=== PATIENT | female | born 1995 | race Caucasian/White ===

== ENCOUNTER → 2021-06-11 07:51 | Outpatient (CLI) | payer OTHER, MEDICAID, SELFPAY ==
--- NOTE | 2021-06-11 | DI.US.S_ITS ---
PROCEDURE: US OB >= 14 WEEKS FETUS INDICATIONS: LATE 20 WEEK ANATOMY SCAN OUTSIDE/PRIOR DATING DATA: Last menstrual period (LMP): Unknown. First dating scan (date and location): Prior imaging outside of the country; [facility]; June 11, 2021 . Estimated date of delivery (ROXANA) from first dating scan: September 10, 2021 . TECHNIQUE: Real-time scanning was performed of the fetus, with image documentation and biometric measurements. COMPARISON: None. FINDINGS: General: A single living intrauterine gestation is present. Presentation: Breech. Placenta: Placental position is anterior , without previa. Lower placental edge 2 cm or less from internal cervical os qualifies as low lying placenta. Amniotic fluid index: 9.6 cm, normal range is 5-24 cm. heart rate: 147 beats per minute. Maternal cervical canal: A 4.1 cm long. Normal lower limit is 2.5 cm. biometrics: Biparietal diameter: 6.6 cm Head circumference: 25.5 cm Abdominal circumference: 23.1 cm Femur length: 4.8 cm Estimated gestational age from initial scan: not applicable. Composite gestational age from present scan: 27 weeks. Estimated weight: 1005 g +/-149 g Measurement variability for biometric dating: +/- 7 days from 14 weeks to 15 weeks 6 days gestation, +/- 10 days from 16 weeks to 21 weeks 6 days gestation, +/- 2 weeks from 22 weeks to 27 weeks 6 days gestation, +/- 3 weeks for 28 weeks gestation or later. weight reference: 4500 g or EFW >90/95% is considered macrosomia or large for gestational age. EFW <10% is small for gestational age. EFW 5% or less is considered intra-uterine growth restriction. Anatomic survey: Neuro: Ventricles are non-dilated at less than 10 mm. Cisterna magna is normal at 3-11 mm. Cerebellum is normal in size and morphology. Nuchal skin fold: Normal at less than 6 mm between 14-21 weeks gestational age. Face: Nose and lips, facial profile are normal. Spine: Not well seen due to positioning. Heart: 4-chambered heart is present, with normal ventricular outflow tracts. Diaphragm: Diaphragm is intact. Stomach: Left-sided stomach is present. Kidneys: No hydronephrosis. Normal is less than 5 mm in 2nd trimester, less than 7 mm in 3rd trimester. Cord: 3-vessel cord has orthotopic insertion. Bladder: Normal in size. Extremities: All 4 extremities identified. IMPRESSION: Live single intrauterine gestation as detailed above. Dictated by: Abhishek Beckham M.D. on 06/11/2021 at 10:46 Approved by: Abhishek Beckham M.D. on 06/11/2021 at 10:54
== END ==
PROVIDERS: Referring Provider Nurse Practitioner Obstetrics & Gynecology; Visit Provider Nurse Practitioner Obstetrics & Gynecology
DX: Z34.02 Encounter for supervision of normal first pregnancy, second trimester (principal); Z3A.27 27 weeks gestation of pregnancy
CPT/HCPCS: 76811; 76817

== ENCOUNTER → 2021-08-06 10:07 | Outpatient (CLI) | payer OTHER, MEDICAID, SELFPAY ==
--- NOTE | 2021-08-06 | DI.US.S_ITS ---
PROCEDURE: US OB LIMITED INDICATIONS: FOLLOW-UP SPINE OUTSIDE/PRIOR DATING DATA: First dating scan (date and location): June 11, 2021. Estimated date of delivery (ROXANA) from first dating scan: September 10, 2021 TECHNIQUE: Real-time scanning was performed of the fetus, with image documentation. Endovaginal scanning: Not performed COMPARISON: , , OB >= 14 WEEKS FETUS, 06/11/2021, 8:07. FINDINGS: A single living intrauterine gestation is present . Presentation: Breech. Placenta: Placental position is fundal, without previa. Amniotic fluid index: 6.3 cm, normal range is 5-24 cm. Single deepest vertical pocket is 3.5 cm. heart rate: 144 beats per minute. Estimated gestational age from initial scan: 35 weeks and 0 days. Repeat evaluation of the spine is unremarkable. IMPRESSION: Single living intrauterine gestation. Unremarkable sonographic evaluation of the spine. Dictated by: Tristen Valle M.D. on 08/08/2021 at 15:10 Approved by: Tristen Valle M.D. on 08/08/2021 at 15:13
== END ==
PROVIDERS: Referring Provider Nurse Practitioner Obstetrics & Gynecology; Visit Provider Nurse Practitioner Obstetrics & Gynecology
DX: Z36.2 Encounter for other antenatal screening follow-up; Z3A.35 35 weeks gestation of pregnancy
CPT/HCPCS: 76815

== ENCOUNTER → 2021-08-24 14:20 | Outpatient (ROUT) | payer OTHER, MEDICAID, SELFPAY | PROVIDERS: Visit Provider Nurse Practitioner Obstetrics & Gynecology | DX: Z34.90 Encounter for supervision of normal pregnancy, unspecified, unspecified trimester (principal); Z36.85 Encounter for antenatal screening for Streptococcus B; Z3A.37 37 weeks gestation of pregnancy | CPT/HCPCS: 87081 ==

== ENCOUNTER 2021-09-03 05:39 | Inpatient (IN) | payer OTHER, MEDICAID, SELFPAY ==
[2021-09-03 06:36] VITALS: BP 124/83
[2021-09-03 07:12] LABS: Add Manual Diff / Slide Review NO; Basophils Absolute Auto 100 /uL (0-100); Basophils Percent Auto 0.5 % (0-2); Eosinophils Absolute Auto 100 /uL (0-450); Eosinophils Percent Auto 0.9 % (2-4); Hematocrit 32.5 % (36-46); Hemoglobin 10.3 g/dL (12.0-16.0); Lymphocytes Absolute Auto 2200 /uL (1100-4500); Lymphocytes Percent Auto 20.4 % (25-40); Mean Corpuscular HGB Conc 31.7 % (30-36); Mean Corpuscular Volume 72.6 fL (80-100); Monocytes Absolute Auto 900 /uL (0-900); Monocytes Percent Auto 8.5 % (3-14); Neutrophils Absolute Auto 7400 /uL (1500-7000); Neutrophils Percent Auto 69.7 % (50-75); Platelet Count 326 X10^3/uL (150-400); Red Blood Cell Count 4.48 X10^6/uL (4.0-5.2); Red Cell Distribution Width 18.4 % (11.6-14.8); White Blood Cell Count 10.6 X10^3/uL (4.5-11.0)
--- NOTE | 2021-09-03 07:17 | PM.PREOP ---
Pre-operative Note COVID-19 COVID-19 status: Result pending Result date/Date tested (Pos, Neg/Pending): 09/03/21 Criteria for continued procedure: Non-surgical alternatives not available or appropriate per current SOC Interval Note History & Physical reviewed/Exam performed by Physician: Yes Changes to H&P: No
--- NOTE | 2021-09-03 07:19 | PM.OBHP.1 ---
OB HPI Date/Time Date of admission: 09/03/21 Date Patient Seen: 09/03/21 Time Patient Seen: 07:19 History of Present Condition Chief complaint: INPT : 3 Para: 0 Estimated Date of Delivery: 09/07/21 Estimated Gestational Age (weeks): 39 Narrative: Sindi Panchal is a 25 year old female admitted for primary section for breech presentation at 39 weeks Indications Operative indications ( section): malpresentation History of Present care: good care, initiated at week # (9), number of visits (10) and pounds weight gain (34) Dating criteria: based on 1st trimester US only Ultrasounds: normal mid trimester US Obstetrical complications: none Medical complications: none Preadmission Labs Blood type: AB (+) positive -: Antibody screen: negative, HBsAG: negative, HIV: negative and RPR/VDLR: negative -: Chlamydia screen: not detected and Gonorrhea screen: not detected -: Rubella: immune and Varicella: immune HCAB: negative Narrative: Elevated 1 hour glucose. Patient checks blood sugars and they were in the normal ranges Evaluation Evaluation Baseline heart rate: 125 Variability: Moderate (11-25) monitor accelerations: Present Monitor Decelerations: Absent Contraction Frequency (minutes): 0 Category of Tracing: Reactive Status: Category l PFSH Surgical History (Updated 09/02/21 @ 11:43 by Jeanna Jensen) Anesthesia History of appendectomy Social History Smoking Status: Never smoker Meds Home Medications and Allergies Home Medications Medication Instructions Recorded Confirmed Type prenat.vits,catalina,elq-djxe-ppclr 1 tab PO DAILY 08/29/21 09/03/21 History Allergies Allergy/AdvReac Type Severity Reaction Status Date / Time No Known Drug Allergies Allergy Unverified 08/29/21 11:29 Review of Systems Review of Systems Narrative: Patient denies headaches, scotomata, epigastric pain. Good movement. No leakage of fluid. No regular contractions. OB Exam Narrative Exam Narrative: HEENT exam within normal limits. Lungs are clear to auscultation percussion. Heart is regular rate and rhythm no S3-S4 murmurs. Abdomen is gravid. Fetus is vertex. Extremities without edema and nontender. Objective Labs Result Diagrams: 09/03/21 06:15 Assessment and Plan Assessment and Plan Assessment and Plan narrative: 39 weeks gestation with breech presentation for primary low-transverse section
[2021-09-03 07:21] LABS: COVID19 -Nasal RAPID Negative (Negative)
[2021-09-03] MEDS: ACETAMINOPHEN IV 1,000 MG/100 ML VIAL 400 MG IV (07:59)
[2021-09-03] MEDS: CEFAZOLIN 2 GM/20 ML SYRINGE IV (08:00)
--- NOTE | 2021-09-03 08:12 | SUR.OPER ---
Supine on Padded OR bed, head on pillow, safety belt at thigh, arms secured on padded arm boards at <90 degrees abduction. Bump under right buttock. Legs uncrossed with pillow under knees, gel pad to heels, tape over blanket to lower legs.
[2021-09-03] MEDS: LACTATED RINGERS 1,000 ML 100 ML IV (08:28)
--- NOTE | 2021-09-03 08:29 | SUR.OPER ---
viable baby girl born at 0814, placenta delivered at 0821, 9/9, cord blood and placenta given to OB RN
[2021-09-03 08:56] VITALS: BP 124/75; PULSE 78; RESP 14; TEMP 36.3; O2SAT 99
[2021-09-03 09:01] VITALS: BP 126/80; PULSE 97; RESP 12; O2SAT 99
--- NOTE | 2021-09-03 09:03 | PM.OBCS.1 ---
Operative Date/Time/Diagnoses Date of procedure: 09/03/21 Time of procedure: 09:03 Pre-op diagnosis: 39 week gestation with breech presentation for primary low-transverse section Post-op diagnosis: same Procedure & Clinicians Procedure: Primary low-transverse section Same procedure as scheduled: Yes Indications: 39 week gestation with persistent breech presentation Surgeon: Remedios Joel Surgical Instrument Technician: Faby Ngo Anesthesia Type: Spinal Operative Notes Findings: Normal tubes, ovaries, uterus. Viable female infant weighing 7 lb 7 oz in breech presentation Closure Type: primary Specimen(s): cord blood Intraoperative meds administered: Duramorph, Ketorolac and Pitocin Applied: Catheter (Alexander) Estimated Blood Loss (mL): 300 Blood products transfused: none Procedure in detail: The patient was brought to the operating room where she underwent a spinal for anesthesia. She was placed in a supine position with a left lateral tilt. A Alexander catheter was placed. Pulsatile stockings were placed and functional throughout the case. 2 g of Ancef were given IV prior to the incision. Warming was in place. The patient was prepped and draped in usual sterile fashion. A low transverse incision was made with a scalpel and the incision was carried down to the fascial layer which was incised transversely with scissors. The administrative assistant data entry did her side of the incision. The midline attachments are superiorly and inferiorly. Some bleeding was controlled Bovie. The rectus muscles were in the midline and the peritoneal incision was made with no damage to internal structures. The peritoneum was incised and superiorly and inferiorly. The incision was stretched with the surgeon and administrative assistant data entry placing traction. Bladder blade was placed and a bladder flap was developed and the bladder held away from the lower uterine segment. An incision was made in the uterus with the scalpel and the incision was extended with stretching. The feet were grasped and the delivered to the chest. The was rotated allowing the arms to be extracted from the uterus. A finger was placed in the a mouth and the head was elevated out of the abdomen with fundal pressure by the administrative assistant data entry the baby was delivered. The infant was bulb suctioned for clear fluid and handed off to the warmer after 1 minute delayed cord clamping. Cord blood was collected. The placenta delivered spontaneously with traction. The uterus was cleaned with clean laps. The uterine incision was closed in 2 layers of 0 chromic suture the first a running locking layer the second an imbricating layer. The administrative assistant data entry was helping to expose the incision. The bladder peritoneum was repaired with 2-0 Vicryl suture. The gutters were cleaned of any remaining fluids and ovaries and tubes were observed to be normal. Adequate hemostasis was noted. The perineum was closed with 2-0 Vicryl suture. The fascia layer was closed with 0 Vicryl suture with 2 stitches. The administrative assistant data entry repairing half the incision with helping to retract and expose the incision for the other half. The incision was irrigated and adequate hemostasis noted. The incision was closed with interrupted 3-0 Vicryl sutures and then a subcuticular stitch of 4-0 Vicryl suture. Steri-Strips were placed. The uterus was massaged to remove any clots. The patient went to recovery room in good condition. Counts of instruments and sponges were correct. Dr. Ngo was present throughout the case to assist with retraction, fundal pressure to deliver the , and suturing half the fascia. Complications: none Baby 1: Infant Gender: Female Presentation: breech Details: cecile Placental Delivery Description: Manual Removal Cord Vessel Description: 3 Vessels score (1 min): 9 score (5 min): 9 weight: 7 lb 7 oz Post-operative Condition: stable Disposition: other ( Center) Aftercare: routine postop
[2021-09-03 09:06] VITALS: BP 120/71; PULSE 68; RESP 12; O2SAT 100
[2021-09-03 09:11] VITALS: BP 110/71; PULSE 77; RESP 12; TEMP 36.4; O2SAT 99
[2021-09-03 09:16] VITALS: BP 117/77; PULSE 77; RESP 12; O2SAT 98
--- NOTE | 2021-09-03 09:33 | SUR.PHASEI ---
Late Entry - 0856 - Received to PACU after spinal anesthesia. Airway patent, self maintained. Report from GABI Arauz and Dr Pate.
--- NOTE | 2021-09-03 09:34 | SUR.PHASEI ---
Pt stable. Pt emotional and anxious to be with baby. Requesting to see baby Kadie. Report called to GABI Leal. Pt transferred to center. Baby and Dad in room.
[2021-09-03] MEDS: ONDANSETRON 4 MG/2 ML INJ IV (11:30)
[2021-09-03] MEDS: OXYCODONE IR 5 MG TABLET PO (11:30)
[2021-09-03] MEDS: KETOROLAC 30 MG/ML VIAL IV ×2 (15:22→21:29)
[2021-09-03] MEDS: CALCIUM CARBONATE 500 MG TAB PO (21:28)
[2021-09-04] MEDS: KETOROLAC 30 MG/ML VIAL IV (03:40)
[2021-09-04] MEDS: LANOLIN OINT 7 GM 1 APPLIC TOP (03:40)
[2021-09-04 06:55] LABS: Add Manual Diff / Slide Review NO; Basophils Absolute Auto 0 /uL (0-100); Basophils Percent Auto 0.2 % (0-2); Eosinophils Absolute Auto 100 /uL (0-450); Eosinophils Percent Auto 0.7 % (2-4); Hematocrit 24.8 % (36-46); Hemoglobin 7.8 g/dL (12.0-16.0); Lymphocytes Absolute Auto 1700 /uL (1100-4500); Lymphocytes Percent Auto 15.6 % (25-40); Mean Corpuscular HGB Conc 31.7 % (30-36); Mean Corpuscular Volume 72.7 fL (80-100); Monocytes Absolute Auto 900 /uL (0-900); Monocytes Percent Auto 8.9 % (3-14); Neutrophils Absolute Auto 7900 /uL (1500-7000); Neutrophils Percent Auto 74.6 % (50-75); Platelet Count 243 X10^3/uL (150-400); Red Blood Cell Count 3.41 X10^6/uL (4.0-5.2); Red Cell Distribution Width 18.3 % (11.6-14.8); White Blood Cell Count 10.6 X10^3/uL (4.5-11.0)
--- NOTE | 2021-09-04 08:01 | P.PNOB_ITS ---
Subjective - OB Subjective Patient comments: no complaints and tolerating diet [place] baby status: doing well and nursing well feeding status: exclusively breast feeding Date Patient Seen: 09/04/21 Time Patient Seen: 08:02 Interval history: Post section day 1. Patient has been up ambulating. Her pain is under control. No further nausea. No headaches, scotomata, epigastric pain. Breast- feeding is going well pain Exam Vital Signs (past 8 hours): Blood pressure 127/82, pulse 70, temperature 98.1? Oxygen Delivery Method Room Air Narrative Exam Narrative: Abdomen is soft, nontender. Uterus is firm, at U, nontender. Dressing is clean, dry, intact. Mild lochia. Extremities with trace edema and nontender Objective Labs Result Diagrams: 09/04/21 06:33 Labs: Laboratory Results - last 24 hr 09/03/21 09/04/21 06:15 06:33 WBC 10.6 RBC 3.41 L Hgb 7.8 L Hct 24.8 L MCV 72.7 L MCH 23.0 L MCHC 31.7 RDW 18.3 H Plt Count 243 Neut % (Auto) 74.6 Lymph % (Auto) 15.6 L [place] % (Auto) 8.9 Eos % (Auto) 0.7 L Baso % (Auto) 0.2 Neut # (Auto) 7900 H Lymph # (Auto) 1700 [place] # (Auto) 900 Eos # (Auto) 100 Baso # (Auto) 0 Blood Type AB Positive Antibody Screen Negative Assessment & Plan Plan day: 1 plan OB: routine postop care Time Spent With Patient Time: Total time spent is greater than 50% in coordination of care (as documented) at patient's floor/unit and/or counseling patient: Time with patient: less than 15 minutes
[2021-09-04] MEDS: DOCUSATE 100 MG CAPSULE 200 MG PO (09:30)
[2021-09-04] MEDS: ACETAMINOPHEN 325 MG TABLET 650 MG PO ×2 (12:26→20:18)
[2021-09-04] MEDS: FERROUS SULFATE 325 MG TABLET PO (12:26)
[2021-09-04] MEDS: IBUPROFEN 600 MG TABLET PO ×2 (12:26→20:17)
[2021-09-04] MEDS: OXYCODONE IR 5 MG TABLET PO (20:18)
[2021-09-05] MEDS: OXYCODONE IR 5 MG TABLET PO ×2 (00:20→07:54)
[2021-09-05] MEDS: ACETAMINOPHEN 325 MG TABLET 650 MG PO ×2 (02:34→07:52)
[2021-09-05] MEDS: IBUPROFEN 600 MG TABLET PO ×2 (02:35→07:53)
[2021-09-05 07:52] VITALS: TEMP 36.6
[2021-09-05] MEDS: FERROUS SULFATE 325 MG TABLET PO (07:52)
[2021-09-05] MEDS: DOCUSATE 100 MG CAPSULE 200 MG PO (07:52)
[2021-09-05 07:54] VITALS: TEMP 36.6
[2021-09-05] MEDS: PRENATAL VIT,CALC/IRON/FOLIC 1 TABLET 1 TAB PO ×2 (07:54→07:56)
--- NOTE | 2021-09-05 08:06 | PM.OBDS.1 ---
Discharge Providers Provider Date of admission: 09/03/21 05:39 Discharge Date: 09/05/21 Primary care physician: Rachna Montenegro CNM Consults: 09/03/21 09:43 Consult to Is Technician Routine Comment: Discharge provider: Remedios Joel MD Summary Hospital Course Date Patient Seen: 09/05/21 Time Patient Seen: 08:07 Diagnoses: section for breech presentation Hospital Course: Patient underwent a primary low-transverse section for breech presentation on 09/03/2021. Patient is ambulatory, tolerating regular diet, urinating well, passing gas, pain is under control. Peripartum Data Infant Delivery Method: Section Procedures: Primary low-transverse section complications: none 1: Gender: Female Disposition of : home Discharge Diagnosis (1) Delivery by section for breech presentation: Status: Acute Status at Discharge Cognitive/behavioral status at discharge: oriented Functional status at discharge: independent ambulation Overall status at discharge: patient is progressing back to baseline Time Spent with Patient Time attestation: Total time spent providing and/or coordinating discharge services: Time spent: Less than 30 minutes Objective Labs Result Diagrams: 09/04/21 06:33 Exam Vital Signs (past 8 hours): Blood pressure 114/56, pulse 69, temperature 98.1? 09/05/21 07:52 09/05/21 07:54 Temperature 97.9 F 97.9 F Oxygen Delivery Method Room Air Narrative Exam Narrative: Abdomen is soft, nontender. Uterus is firm, at U -1, nontender. Dressing is clean, dry, intact. Mild lochia. Extremities with trace edema and nontender. Patient is AB-positive, rubella immune Discharge Plan Discharge Plan Patient Disposition: Home Discharge orders & Medications Prescriptions: New ferrous sulfate 325 mg (65 mg iron) Tablet 325 mg PO DAILY Qty: 30 0RF docusate sodium 100 mg Capsule 200 mg PO DAILY Qty: 20 0RF ibuprofen 600 mg Tablet 600 mg PO Q6H PRN (Reason: Fever/Mild Pain (1-3)) Qty: 30 0RF oxycodone 5 mg Tablet 5 mg PO Q4H PRN (Reason: Pain, Moderate (4-6)) Qty: 20 0RF Continued prenat.vits,catalina,lza-zaok-fbage Tablet 1 tab PO DAILY 0RF Label Comments: Pt said she is not taking PNV Follow up/Referrals: Remedios Joel MD [Physician] - 1 Week (aquacel removal) Rachna Montenegro CNM [Primary Care Provider] - Diet/Activity/Treatments Diet: Regular Activity: Nothing in vagina or lifting over 20 lb for 6 weeks Skin/Wound/Dressing Care Report to your healthcare provider any signs of infection, such as:: chills, fever and increased pain Dressing: Leave dressing in place until 1 week post visit Discharge Data Primary Care Provider: Rachna Montenegro
[2021-09-05 08:28] VITALS: BP 117/77; PULSE 77; RESP 12; TEMP 36.6
== END 2021-09-05 10:00 | disposition home or self-care (01) | DRG 540 ==
PROVIDERS: Admitting Provider Specialist; PCP Nurse Practitioner Obstetrics & Gynecology; Referring Provider Specialist; Visit Provider Specialist
PROC: 10D00Z1 Extraction of Products of Conception, Low, Open Approach (ICD-10-PCS; CPT 59514; principal; 2021-09-03 07:45)
DX: O32.8XX0 Maternal care for other malpresentation of fetus, not applicable or unspecified (principal); O90.81 Anemia of the puerperium; D62 Acute posthemorrhagic anemia; Z3A.39 39 weeks gestation of pregnancy; Z37.0 Single live birth; Z20.822 Contact with and (suspected) exposure to COVID-19
CPT/HCPCS: 36415; 59050; 59514; 85025; 86850; 86900; 86901; 87635; C9803; J0131; J0690; J1885; J2274; J2405; J2590; J3010

== ENCOUNTER → 2022-09-12 09:57 | Outpatient (CLI) | payer OTHER, MEDICAID, SELFPAY ==
--- NOTE | 2022-09-12 | DI.US.S_ITS ---
PROCEDURE: US OB >= 14 WEEKS FETUS INDICATIONS: 20 WEEK ANATOMY SCAN OUTSIDE/PRIOR DATING DATA: Last menstrual period (LMP): 03/26/2022 LMP-based estimated date of delivery (ROXANA): 12/31/2022 First dating scan (date and location): 09/12/2022 Estimated date of delivery (ROXANA) from first dating scan: 01/13/2023 The calculations are made using the study generated ROXANA of 01/13/2023. TECHNIQUE: Real-time scanning was performed of the fetus, with image documentation and biometric measurements. Endovaginal scanning: Not indicated COMPARISON: [facility], , OB >= 14 WEEKS FETUS, 08/29/2021, 11:46. FINDINGS: General: A single living intrauterine gestation is present. Presentation: Breech Placenta: Placental position is posterior, without previa. Amniotic fluid index: 12.6 cm, normal range is 5-24 cm. Single deepest vertical pocket is 4.7 cm. heart rate: 140 beats per minute. Maternal cervical canal: 3.5 cm long. Normal lower limit is 2.5 cm. biometrics: Biparietal diameter: 5.1 cm, 21 weeks, 2 days. Head circumference: 20.7 cm, 22 weeks, 5 days. Abdominal circumference: 17.5 cm, 22 weeks, 3 days. Femur length: 4.1 cm, 23 weeks, 1 day. Clinically estimated gestational age: 24 weeks, 2 days. Composite gestational age from present scan: 22 weeks, 3 days. Estimated weight and percentile: 526 grams, 2 percent. Anatomic survey: Neuro: Ventricles are non-dilated at less than 10 mm. Cisterna magna is normal at 3-11 mm. Cerebellum is normal in size and morphology. Nuchal skin fold: Normal at less than 6 mm between 14-21 weeks gestational age. Face: Nose and lips, facial profile are normal. Spine: No evidence for spina bifida. Heart: 4-chambered heart is present, with normal ventricular outflow tracts. Diaphragm: Diaphragm is intact. Stomach: Left-sided stomach is present. Kidneys: No hydronephrosis. Normal is less than 5 mm in 2nd trimester, less than 7 mm in 3rd trimester. Cord: 3-vessel cord has orthotopic insertion. Bladder: Normal in size. Extremities: All 4 extremities identified. IMPRESSION: 1. Single live intrauterine gestation with fetus in breech presentation. heart rate is 140 beats per minute. Normal amount of amniotic fluid. 2. Estimated gestational age based on current study is 22 weeks, 3 days. Estimated weight is at 2 percent. 3. Normal anatomic survey. We strive to produce accurate, complete, and clear reports of imaging services. To assist us in improving patient care, this report was composed using standard report templates and voice recognition software. Therefore, it may contain abnormal punctuation, insertions and/or omissions. Occasional wrong-word or sound-alike substitutions may occur. Though we review the report and make efforts to correct it, we do recommend that the report be read carefully in proper context to recognize any text inaccuracies. Dictated by: Rolando Donald M.D. on 09/12/2022 at 12:19 Approved by: Rolando Donald M.D. on 09/12/2022 at 12:22
== END ==
PROVIDERS: Referring Provider Nurse Practitioner Obstetrics & Gynecology; Visit Provider Nurse Practitioner Obstetrics & Gynecology
DX: Z34.92 Encounter for supervision of normal pregnancy, unspecified, second trimester (principal); Z3A.22 22 weeks gestation of pregnancy
CPT/HCPCS: 76811

== ENCOUNTER 2022-12-27 16:22 | Inpatient (IN) | payer OTHER, MEDICAID, SELFPAY ==
--- NOTE | 2022-12-27 16:29 | PM.OBHP.1 ---
OB HPI Date/Time Date of admission: 12/27/22 Date Patient Seen: 12/27/22 Time Patient Seen: 16:29 History of Present Condition Chief complaint: OB Check, 39 weeks : 4 Para: 1 Estimated Date of Delivery: 01/09/23 Estimated Gestational Age (weeks): 38.1 Narrative: Sindi Panchal is a 27 year old female @ 38wks 1 day by 7wk US (never had return of menses after 09/03/21 by primary for breech). Sindi presents for evaluation of labor and suspected SROM. Has been feeling regular, uncomfortable contractions Q20 minutes all night long. Was seen in office today with CE 1.5/80%/-2, soft, posterior and reactive NST. Contractions have gotten steadily stronger and closer together and she noticed leaking of clear fluid every time she stands up now since 1pm. Uncomplicated care with CNMs. Repeat scheduled for 01/02/22 with . Indications Operative indications ( section): previous uterine surgery History of Present care: good care, initiated at week # (7), number of visits (10) and pounds weight gain (10) Dating criteria: based on 1st trimester US only Ultrasounds: normal mid trimester US Obstetrical complications: other (Anemia) Medical complications: none Preadmission Labs Blood type: AB (+) positive -: Antibody screen: negative, GBS status: negative, HBsAG: negative, HIV: negative and RPR/VDLR: negative -: Chlamydia screen: not detected and Gonorrhea screen: not detected -: Rubella: immune and Varicella: immune HCT: 31.3 HCAB: negative Narrative: Declined gtt -> HgbA1c 5.4, random glucose 93 Prior (ies) History: SAB x2 09/03/21- primary (breech), 3376gram, female @ [id number] Evaluation Evaluation Baseline heart rate: 135 Variability: Moderate (11-25) monitor accelerations: Present Monitor Decelerations: Absent Contraction Frequency (minutes): 5 Uterine Contraction Intensity: Moderate Status: Category l Dilation (cm): 3 Effacement (%): 80 Dilation: 3-4 cm Effacement: >/=80% station: -2 Position of cervix: posterior Consistency: soft Macias score: 8 Non-invasive Membranes Rupture Test: positive PFSH Surgical History Anesthesia History of appendectomy Hx of section Social History (Updated 12/27/22 @ 17:00 by Rachna Montenegro CNM) marital status: number of children: 1 household members: spouse and children lives independently: Yes Smoking Status: Never smoker Meds Home Medications and Allergies Home Medications Medication Instructions Recorded Confirmed Type prenat.vits,catalina,zly-iops-swltz 1 tab PO DAILY 08/29/21 10/22/22 History Allergies Allergy/AdvReac Type Severity Reaction Status Date / Time No Known Drug Allergies Allergy Verified 10/22/22 10:46 Review of Systems Review of Systems ROS: Yes All systems reviewed with the patient and are negative except as otherwise documented OB Exam Vital signs Blood Pressure: 122/79 Pulse Rate: 86 Temperature: 98.4 F Resp Effort & Inspection: normal respiratory effort and able to speak in complete sentences Auscultation: clear to auscultation bilaterally Cardio Rate: regular rate Rhythm: regular rhythm Heart Sounds: S1 normal and S2 normal Presentation: vertex Objective Labs 12/27/22 17:00 Assessment and Plan Assessment and Plan Assessment and Plan narrative: A: Term primipara GDM unknown Anemia SROM x 3 hours without sx of infection No Indication for GBS prophylaxis Cat I FHR P: Admit, routine pre-op orders. OR, anesthesia, OC Peds and OC OB notified. Will transfer care to OB and move toward .
[2022-12-27 17:05] VITALS: BP 122/79; PULSE 86; TEMP 36.9
[2022-12-27] MEDS: LACTATED RINGERS 1,000 ML 42 ML IV ×2 (17:30→19:01)
[2022-12-27 17:35] LABS: Add Manual Diff / Slide Review NO; Basophils Absolute Auto 100 /uL (0-100); Eosinophils Absolute Auto 0 /uL (0-450); Eosinophils Percent Auto 0.4 % (2-4); Hematocrit 29.5 % (36-46); Hemoglobin 9.4 g/dL (12.0-16.0); Lymphocytes Absolute Auto 1800 /uL (1100-4500); Lymphocytes Percent Auto 16.9 % (25-40); Mean Corpuscular HGB Conc 31.8 % (30-36); Mean Corpuscular Hemoglobin 22.6 PG (26-34); Mean Corpuscular Volume 70.9 fL (80-100); Monocytes Absolute Auto 800 /uL (0-900); Monocytes Percent Auto 7.1 % (3-14); Neutrophils Absolute Auto 8000 /uL (1500-7000); Neutrophils Percent Auto 74.6 % (50-75); Platelet Count 325 X10^3/uL (150-400); Red Blood Cell Count 4.17 X10^6/uL (4.0-5.2); Red Cell Distribution Width 15.7 % (11.6-14.8); White Blood Cell Count 10.7 X10^3/uL (4.5-11.0)
[2022-12-27] MEDS: CEFAZOLIN 2 GM/100 ML PREMIX 100 ML IV (18:00)
--- NOTE | 2022-12-27 18:29 | SUR.OPER ---
Pre op heart rate 140s. Time of 1809. Placenta and cord blood collected at 181 and sent with L&D RN.
[2022-12-27 18:49] VITALS: BP 123/81; PULSE 71; RESP 14; TEMP 36.4; O2SAT 98
[2022-12-27 18:52] VITALS: BP 125/85; PULSE 74; RESP 18; O2SAT 97
[2022-12-27 18:55] VITALS: BP 109/74; PULSE 71; RESP 20; O2SAT 98
[2022-12-27 18:58] VITALS: BP 117/82; PULSE 67; RESP 19; O2SAT 97
--- NOTE | 2022-12-27 19:01 | PM.OBCS.1 ---
Operative Date/Time/Diagnoses Date of procedure: 12/27/22 Time of procedure: 19:02 Pre-op diagnosis: 38 week gestation in active labor with prior section Post-op diagnosis: same Procedure & Clinicians Procedure: Repeat low-transverse section Same procedure as scheduled: Yes Indications: Prior section at 38 weeks in active labor Surgeon: Remedios Joel Click Yes if Unassisted: Yes Anesthesia Type: Spinal Operative Notes Findings: Normal tubes, ovaries, uterus Closure Type: primary Specimen(s): cord blood Intraoperative meds administered: Duramorph, Ketorolac and Pitocin Applied: Catheter (Alexander) Estimated Blood Loss (mL): 400 Blood products transfused: none Procedure in detail: The patient was brought to the operating room where she underwent a spinal for anesthesia. She was placed in a supine position with a left lateral tilt. A Alexander catheter was placed. Pulsatile stockings were placed and functional throughout the case. The patient had a sudden onset of severe frontal headache treated with fluid bolus, Toradol. 2 g of Ancef were given IV prior to the incision. Warming was in place. The patient was prepped and draped in usual sterile fashion. A low transverse incision was made with a scalpel and the incision was carried down to the fascial layer which was incised transversely with scissors. The midline attachments are superiorly and inferiorly. Some bleeding was controlled Bovie. The rectus muscles were in the midline and the peritoneal incision was made with no damage to internal structures. The peritoneum was incised and superiorly and inferiorly. The incision was stretched with the surgeon and orthodontic assistant placing traction. Bladder blade was placed and a bladder flap was developed and the bladder held away from the lower uterine segment. An incision was made in the uterus with the scalpel and the incision was extended with stretching. The head was elevated out of the abdomen and with fundal pressure by the orthodontic assistant the baby was delivered. The infant was bulb suctioned for clear fluid and after delayed cord clamping was handed off to the warmer. Cord blood was collected. The placenta delivered spontaneously with traction. The uterus was cleaned with clean laps. The uterine incision was closed in 2 layers of 0 chromic suture the first a running locking layer the second an imbricating layer. The bladder peritoneum was repaired with 2-0 Vicryl suture. The gutters were cleaned of any remaining fluids and ovaries and tubes were observed to be normal. Adequate hemostasis was noted. The perineum was closed with 2-0 Vicryl suture. The fascia layer was closed with #1 Vicryl suture with 2 stitches. The incision was irrigated and adequate hemostasis noted. The incision was closed with interrupted 3-0 Vicryl sutures and then a subcuticular stitch of 4-0 Vicryl suture. Steri-Strips were placed. The uterus was massaged to remove any clots. The patient went to recovery room in good condition. Counts of instruments and sponges were correct. Complications: none [place] Baby 1: Gender: Female Presentation: vertex Position: Right Occiput Anterior Placental Delivery Description: Expressed Cord Vessel Description: 3 Vessels and Nuchal Cord (Loose) score (1 min): 8 score (5 min): 9 weight: 6 lb 14 oz Post-operative Condition: stable Disposition: other ( Center) Aftercare: routine postop
[2022-12-27] MEDS: ACETAMINOPHEN 325 MG TABLET 650 MG PO (19:53)
[2022-12-27] MEDS: OXYCODONE IR 5 MG TABLET PO (19:54)
[2022-12-27] MEDS: METOCLOPRAMIDE 10 MG/2 ML INJ IV (20:29)
[2022-12-27] MEDS: MAG HYDROX/ALUM/SIMETH 30 ML UDC PO (23:52)
[2022-12-27] MEDS: ONDANSETRON 4 MG/2 ML INJ IV (23:53)
[2022-12-27] MEDS: KETOROLAC 30 MG/ML VIAL IV (23:53)
[2022-12-28] MEDS: METOCLOPRAMIDE 10 MG/2 ML INJ IV (02:46)
[2022-12-28] MEDS: ACETAMINOPHEN 325 MG TABLET 650 MG PO ×3 (02:46→18:04)
[2022-12-28] MEDS: KETOROLAC 30 MG/ML VIAL IV ×2 (05:58→12:22)
[2022-12-28 07:11] LABS: Add Manual Diff / Slide Review NO; Basophils Absolute Auto 100 /uL (0-100); Basophils Percent Auto 0.5 % (0-2); Eosinophils Absolute Auto 0 /uL (0-450); Eosinophils Percent Auto 0.3 % (2-4); Hematocrit 25.1 % (36-46); Hemoglobin 8.2 g/dL (12.0-16.0); Lymphocytes Absolute Auto 1800 /uL (1100-4500); Lymphocytes Percent Auto 17.9 % (25-40); Mean Corpuscular HGB Conc 32.7 % (30-36); Mean Corpuscular Hemoglobin 23.2 PG (26-34); Mean Corpuscular Volume 70.8 fL (80-100); Monocytes Absolute Auto 600 /uL (0-900); Neutrophils Absolute Auto 7700 /uL (1500-7000); Neutrophils Percent Auto 75.3 % (50-75); Platelet Count 261 X10^3/uL (150-400); Red Blood Cell Count 3.55 X10^6/uL (4.0-5.2); Red Cell Distribution Width 15.8 % (11.6-14.8); White Blood Cell Count 10.3 X10^3/uL (4.5-11.0)
[2022-12-28] MEDS: PRENATAL VIT,CALC/IRON/FOLIC 1 TABLET 1 TAB PO (08:34)
[2022-12-28] MEDS: FERROUS SULFATE 325 MG TABLET PO (08:34)
[2022-12-28] MEDS: DOCUSATE 100 MG CAPSULE PO (08:34)
[2022-12-28] MEDS: diphenhydrAMINE 50 MG/ML VIAL 25 MG IV (08:34)
--- NOTE | 2022-12-28 08:43 | PM.OBPN.1 ---
Subjective - OB Subjective Patient comments: no complaints [place] baby status: doing well [place] feeding status: exclusively breast feeding Date Patient Seen: 12/28/22 Time Patient Seen: 08:43 Interval history: Patient has not had any further headaches since the started her . She has not passed gas yet. She just had her Alexander catheter removed. She is not been up and ambulatory yet. Pain is under control. No further nausea. Exam Vital Signs (past 8 hours): Blood pressure 98/65, pulse 64 temperature 98.1? Oxygen Delivery Method Room Air Narrative Exam Narrative: Abdomen is soft, nontender. Uterus is firm, at U, nontender. Lochia is appropriate. Extremities with trace edema and nontender. Objective Labs 12/28/22 07:00 Labs: Laboratory Results - last 24 hr 12/27/22 12/27/22 12/28/22 17:00 17:00 07:00 WBC 10.7 10.3 RBC 4.17 3.55 L Hgb 9.4 L 8.2 L Hct 29.5 L 25.1 L MCV 70.9 L 70.8 L MCH 22.6 L 23.2 L MCHC 31.8 32.7 RDW 15.7 H 15.8 H Plt Count 325 261 Neut % (Auto) 74.6 75.3 H Lymph % (Auto) 16.9 L 17.9 L Wetzel % (Auto) 7.1 6.0 Eos % (Auto) 0.4 L 0.3 L Baso % (Auto) 1.0 0.5 Neut # (Auto) 8000 H 7700 H Lymph # (Auto) 1800 1800 Wetzel # (Auto) 800 600 Eos # (Auto) 0 0 Baso # (Auto) 100 100 Blood Type AB Positive Antibody Screen Negative Assessment & Plan Plan day: 1 plan OB: routine postop care Time Spent With Patient Time: Total time spent is greater than 50% in coordination of care (as documented) at patient's floor/unit and/or counseling patient: Time with patient: less than 15 minutes
[2022-12-28] MEDS: IBUPROFEN 600 MG TABLET PO (18:05)
[2022-12-28] MEDS: CALCIUM CARBONATE 500 MG TAB PO (20:47)
[2022-12-28] MEDS: OXYCODONE IR 5 MG TABLET PO (20:48)
[2022-12-29] MEDS: IBUPROFEN 600 MG TABLET PO ×2 (01:50→08:17)
[2022-12-29] MEDS: OXYCODONE IR 5 MG TABLET PO ×2 (01:51→06:33)
[2022-12-29] MEDS: MAGNESIUM HYDROXIDE 30 ML UDC PO (01:53)
[2022-12-29] MEDS: ACETAMINOPHEN 325 MG TABLET 650 MG PO ×2 (06:32→12:17)
[2022-12-29] MEDS: LANOLIN OINT 7 GM 1 APPLIC TOP (08:16)
[2022-12-29] MEDS: FERROUS SULFATE 325 MG TABLET PO (08:16)
[2022-12-29] MEDS: DOCUSATE 100 MG CAPSULE PO (08:17)
[2022-12-29] MEDS: PRENATAL VIT,CALC/IRON/FOLIC 1 TABLET 1 TAB PO (08:17)
--- NOTE | 2022-12-29 08:58 | PM.OBDS.1 ---
Discharge Providers Provider Date of admission: 12/27/22 16:22 Discharge Date: 12/29/22 Primary care physician: Doctor Bhargav MD Consults: 12/27/22 19:25 Consult to [employer] Routine Comment: Discharge provider: Remedios Joel MD Summary Hospital Course Date Patient Seen: 12/29/22 Time Patient Seen: 08:58 Diagnoses: 38 week gestation in labor with prior section for repeat Hospital Course: Patient arrived on Labor and delivery in active labor. She underwent a repeat low-transverse section. She is ambulatory. She is passing gas. She is urinating well. Her pain is controllable when she is not having gas pains. Mild lochia. is going well. Peripartum Data Infant Delivery Method: Section (Repeat) Procedures: Repeat low-transverse section complications: none 1: Gender: Female Disposition of : home Discharge Diagnosis (1) Delivery by section at 37-39 weeks of gestation due to labor: Status: Acute Status at Discharge Cognitive/behavioral status at discharge: oriented Functional status at discharge: independent ambulation Overall status at discharge: patient is progressing back to baseline Time Spent with Patient Time attestation: Total time spent providing and/or coordinating discharge services: Time spent: Less than 30 minutes Objective Labs 12/28/22 07:00 Exam Vital Signs (past 8 hours): Blood pressure 110/73, pulse 75, temperature 98.2? Oxygen Delivery Method Room Air Narrative Exam Narrative: Abdomen is soft, nontender. Uterus is firm, at U, appropriately tender. Dressing is clean, dry, intact. Mild lochia. Extremities with trace edema and nontender. Discharge Plan Discharge Plan Patient Disposition: Home Discharge orders & Medications Prescriptions: New ferrous sulfate 325 mg (65 mg iron) Tablet 325 mg PO DAILY Qty: 30 0RF docusate sodium 100 mg Capsule 100 mg PO DAILY Qty: 20 0RF ibuprofen 600 mg Tablet 600 mg PO Q6H Qty: 30 0RF oxycodone 5 mg Tablet 5 mg PO Q4H PRN (Reason: Pain, Moderate (4-6)) Qty: 20 0RF Continued prenat.vits,catalina,[id number]-[id number] Tablet 1 tab PO DAILY Patient Comments: Pt said she is not taking PNV Follow up/Referrals: Remedios Joel MD [Physician] - 1 Week (Aquacel removal Patient has follow-up appointments with Rachna Montenegro at 2 and 6 weeks) Diet/Activity/Treatments Diet: Regular Activity: Nothing in vagina for 6 weeks, no lifting over 10 lb for 6 weeks Skin/Wound/Dressing Care Report to your healthcare provider any signs of infection, such as:: chills, fever and increased pain Dressing: Leave dressing on until 1 week postop appointment Visit Report/Discharge Packet Instructions: DI for Stand Alone Forms: Discharge: Care, Patient Portal/API Discharge Data Primary Care Provider: Miscellaneous,Doctor Attending Provider: Rachna Montenegro Admit Date/Time: 12/27/22 16:22
== END 2022-12-29 12:42 | disposition home or self-care (01) | DRG 540 ==
PROVIDERS: Specialist; Admitting Provider Nurse Practitioner Obstetrics & Gynecology; Referring Provider Nurse Practitioner Obstetrics & Gynecology; Visit Provider Nurse Practitioner Obstetrics & Gynecology
PROC: 10D00Z1 Extraction of Products of Conception, Low, Open Approach (ICD-10-PCS; CPT 59514; principal; 2022-12-27 18:00)
DX: O34.211 Maternal care for low transverse scar from previous cesarean delivery (principal); O75.82 Onset (spontaneous) of labor after 37 completed weeks of gestation but before 39 completed weeks gestation, with delivery by (planned) cesarean section; Z3A.38 38 weeks gestation of pregnancy; Z37.0 Single live birth; O99.02 Anemia complicating childbirth; D62 Acute posthemorrhagic anemia
CPT/HCPCS: 36415; 59050; 59514; 85025; 86850; 86900; 86901; G0379; J0690; J1200; J1885; J2274; J2405; J2590; J2765; J3010

== ENCOUNTER → 2023-02-04 10:35 | Outpatient (CLI) | payer OTHER, MEDICAID, SELFPAY ==
--- NOTE | 2023-02-04 | DI.US.S_ITS ---
PROCEDURE: US ABDOMEN LIMITED INDICATIONS: 5WKS POST ; PAIN AT INCISION TECHNIQUE: Real-time focused scanning was performed of the abdomen, with image documentation. Color Doppler was also utilized. COMPARISON: None. FINDINGS: Scanning is performed at the areas of clinical concern, along the scar. Two areas of poorly defined fluid collections can be seen, with mild surrounding inflammatory change. One is seen to the right of the midline measuring 6 x 7 x 27 mm. A 2nd is seen closer to the midline measuring 10 x 7 x 32 mm. IMPRESSION: Poorly defined fluid collections can be seen along the scar, which have an ultrasound appearance that is most consistent with phlegmon. Please consider short-term follow-up, if clinically appropriate. Dictated by: Abram Monsalve M.D. on 02/04/2023 at 10:58 Approved by: Abram Monsalve M.D. on 02/04/2023 at 11:01
== END ==
PROVIDERS: Referring Provider Advanced Practice Midwife; Visit Provider Advanced Practice Midwife
DX: O90.0 Disruption of cesarean delivery wound (principal)
CPT/HCPCS: 76705